=== PATIENT | male | born 2000 | race Caucasian/White ===

== ENCOUNTER → 2023-04-07 | Outpatient (CLI) | payer OTHER, SELFPAY ==
--- NOTE | 2023-04-07 18:47 | US_ITS ---
INDICATION: RT TESTICLE CYST VS NODULE EXAMINATION: US Scrotum (Contents) TECHNIQUE: Realtime ultrasound of the testicles was performed with grayscale, Color Doppler and spectral Doppler analysis. COMPARISON: None. FINDINGS: RIGHT: TESTIS: Right testicle measures 4 x 2 x 2.7 cm. Normal in size and echotexture, without focal lesion. COLOR DOPPLER: Normal arterial flow present in the testicle with monophasic waveforms. EPIDIDYMIS: Right epididymal head measures 16 x 12 x 13 mm. Anechoic, avascular right epididymal head cyst measures 11 x 7 x 10 mm. HYDROCELE: None. VARICOCELE: None. LEFT: TESTIS: Left testicle measures 4 x 1.9 x 2.6 cm. Normal in size and echotexture, without focal lesion. COLOR DOPPLER: Normal arterial flow present in the testicle with monophasic waveforms. EPIDIDYMIS: Left epididymal head measures 8 x 7 x 8 mm. Normal echotexture with no discrete lesion. HYDROCELE: None. VARICOCELE: None. US/Testicular with Arterial Flow IMPRESSION: 1. Simple appearing right epididymal head cyst measuring up to 11 mm diameter, corresponding with palpable abnormality. 2. Unremarkable bilateral testicles. Electronically Signed: Sukhdev Chan MD at 22:24 EDT ,
== END | disposition home or self-care (01) ==
LOC: US 18:44
PROVIDERS: PCP Family Medicine; Referring Provider Family Medicine; Visit Provider Family Medicine
DX: N44.2 Benign cyst of testis (principal)
CPT/HCPCS: 76870; 93976